=== PATIENT | male | born 1940 | race Caucasian/White ===

== ENCOUNTER → 2017-10-25 | Outpatient (REF) | LOC: ZLAB.WCH 19:07 | DX: Z01.89 Encounter for other specified special examinations (principal) | CPT/HCPCS: G0103 ==

== ENCOUNTER → 2018-09-15 | Outpatient (REF) | LOC: ZLAB.WCH 16:43 | DX: Z01.89 Encounter for other specified special examinations (principal) | CPT/HCPCS: G0103 ==